=== PATIENT | female | born 1985 | race Hispanic/Latino ===

== ENCOUNTER 2022-12-12 12:42 | Inpatient (IN) | payer OTHER ==
[~2022-12-12] VITALS: Ht 172.7 cm; Wt 118.6 kg
[2022-12-12 13:42] LABS: BASOPHILS % (AUTO) 0.4 % (0.0-5.0); EOSINOPHILS % (AUTO) 0.6 % (0.0-8.0); HEMATOCRIT 41.3 % (36-48); LYMPHOCYTES % (AUTO) 13.2 % (21.0-51.0); MEAN CORPUSCULAR HGB CONC 32.9 g/dL (32.0-36.0); MEAN CORPUSCULAR VOLUME 88.1 fL (79-99); MONOCYTES % (AUTO) 9.7 % (3.0-13.0); NEUTROPHILS % (AUTO) 75.6 % (40.0-77.0); PLATELET COUNT (AUTO) 305 K/uL (130-400); RED BLOOD CELL COUNT(AUTO) 4.69 MIL/uL (4.00-5.50); RED CELL DISTRIBUTION WIDTH 13.2 % (11.0-15.5); WHITE BLOOD COUNT (AUTO) 18.1 K/uL (4.8-10.8)
[2022-12-12 13:55] LABS: CREATININE 0.5 mg/dL (0.5-1.5); POTASSIUM 3.7 mmol/L (3.5-5.1)
[2022-12-12 13:58] LABS: ALBUMIN 3.9 g/dL (3.5-5.0); TOTAL PROTEIN, SERUM 7.5 g/dL (6.0-8.3)
[2022-12-12] MEDS ORDERED: MORPHINE 4 MG SYG IVP ONE (14:00)
[2022-12-12] MEDS ORDERED: ONDANSETRON 4MG INJ IVP ONE (14:00)
[2022-12-12 14:14] LABS: APPEARANCE,URINE CLOUDY (CLEAR); BILIRUBIN,URINE NEGATIVE (NEGATIVE); COLOR,URINE YELLOW (YELLOW); GLUCOSE, URINE (UA) NEGATIVE (NEGATIVE); KETONES,URINE 100 mg/dL (NEGATIVE); LEUKOCYTE ESTERASE ,URINE 75 Leu/uL (NEGATIVE); NITRATE,URINE NEGATIVE (NEGATIVE); OCCULT BLOOD,URINE MODERATE (NEGATIVE); PH,URINE 5.5 (5.0-8.0); PROTEIN,URINE 10 mg/dL (NEGATIVE); UROBILINOGEN,URINE 0.2 mg/dL (0.2-1.0)
[2022-12-12 14:19] LABS: HCG,QUALITATIVE URINE NEGATIVE (NEGATIVE)
[2022-12-12 14:30] LABS: BACTERIA,URINE RARE /HPF (None Seen); MUCUS,URINE FEW LPF (None Seen); SQUAMOUS EPITHELIAL CELL,UR MOD /HPF (0-2)
[2022-12-12] MEDS ORDERED: LEVOFLOXACIN 500 MG/D5W 100 ML 100 ML IV SCH (15:30)
[2022-12-12] MEDS ORDERED: KETOROLAC 15MG/ML VIAL (15MG/ML) IV ONE (15:30)
[2022-12-12] MEDS ORDERED: IOHEXOL 350 MG/ML 100ML INFUS..BTL IV ONE (16:10)
[2022-12-12] MEDS ORDERED: 0.9%NACL 50ML IV SCH (19:00)
[2022-12-12] MEDS ORDERED: ZOSYN 3.375GM +NS 50ML IVPB SCH ×2 (19:00→19:30)
[2022-12-12] MEDS ORDERED: NITROGLYCERIN 0.4 MG SL TAB SL PRN (19:30)
[2022-12-12] MEDS ORDERED: ONDANSETRON 4MG INJ IV PRN (19:30)
[2022-12-12] MEDS ORDERED: ACETAMINOPHEN 325 MG TAB PO PRN ×2 (19:30)
[2022-12-12 19:48] LABS: INR 1.07 (0.85-1.15); PROTHROMBIN TIME 11.6 SEC (9.6-11.6)
[2022-12-12 19:49] LABS: PARTIAL THROMBOPLASTIN TIME 27.2 SEC (26.3-35.5)
[2022-12-12 19:52] LABS: MAGNESIUM 2.1 mg/dL (1.80-2.40)
[2022-12-12] MEDS: ZOSYN 3.375GM+NS 50ML 50 ML IVPB SCH (21:05)
[2022-12-12] MEDS: FAMOTIDINE 20MG VIAL IV SCH (21:05)
[2022-12-12] MEDS: MORPHINE 2 MG SYG IV PRN (21:06)
[2022-12-12] MEDS: 0.9%NACL 1000ML 1,000 ML IV SCH (21:06)
[2022-12-12 23:35] VITALS: BP 127/74
[2022-12-13] MEDS: ZOSYN 3.375GM+NS 50ML 50 ML IVPB SCH ×3 (03:14→19:37)
[2022-12-13 04:10] VITALS: BP 132/76
[2022-12-13 05:55] LABS: BASOPHILS % (AUTO) 0.3 % (0.0-5.0); EOSINOPHILS % (AUTO) 0.6 % (0.0-8.0); HEMATOCRIT 40.2 % (36-48); LYMPHOCYTES % (AUTO) 11.8 % (21.0-51.0); MEAN CORPUSCULAR HEMOGLOBIN 28.4 pg (27.0-33.0); MEAN CORPUSCULAR HGB CONC 32.3 g/dL (32.0-36.0); MEAN CORPUSCULAR VOLUME 87.8 fL (79-99); MONOCYTES % (AUTO) 11.3 % (3.0-13.0); NEUTROPHILS % (AUTO) 75.4 % (40.0-77.0); PLATELET COUNT (AUTO) 303 K/uL (130-400); RED BLOOD CELL COUNT(AUTO) 4.58 MIL/uL (4.00-5.50); RED CELL DISTRIBUTION WIDTH 13.2 % (11.0-15.5); WHITE BLOOD COUNT (AUTO) 15.9 K/uL (4.8-10.8)
[2022-12-13 06:17] LABS: ALBUMIN 3.3 g/dL (3.5-5.0); CREATININE 0.6 mg/dL (0.5-1.5); MAGNESIUM 2.2 mg/dL (1.80-2.40); POTASSIUM 3.7 mmol/L (3.5-5.1); TOTAL PROTEIN, SERUM 7.2 g/dL (6.0-8.3)
[2022-12-13 08:00] VITALS: BP 117/81
[2022-12-13] MEDS: FAMOTIDINE 20MG VIAL IV SCH ×2 (08:07→19:39)
[2022-12-13] MEDS: MORPHINE 2 MG SYG IV PRN (11:54)
[2022-12-13 12:00] VITALS: BP 141/79
[2022-12-13 16:00] VITALS: BP 129/75
[2022-12-13] MEDS: 0.9%NACL 1000ML 1,000 ML IV SCH (19:38)
[2022-12-13 20:00] VITALS: BP 122/75
[2022-12-14] VITALS: BP 131/82
[2022-12-14] MEDS: 0.9%NACL 1000ML 1,000 ML IV SCH ×3 (00:47→19:50)
[2022-12-14] MEDS: ZOSYN 3.375GM+NS 50ML 50 ML IVPB SCH ×3 (03:00→19:49)
[2022-12-14 04:00] VITALS: BP 121/66
[2022-12-14 05:53] LABS: HEMATOCRIT 38.4 % (36-48); MEAN CORPUSCULAR HEMOGLOBIN 28.6 pg (27.0-33.0); MEAN CORPUSCULAR HGB CONC 32.3 g/dL (32.0-36.0); MEAN CORPUSCULAR VOLUME 88.5 fL (79-99); RED BLOOD CELL COUNT(AUTO) 4.34 MIL/uL (4.00-5.50); RED CELL DISTRIBUTION WIDTH 13.2 % (11.0-15.5); WHITE BLOOD COUNT (AUTO) 10.4 K/uL (4.8-10.8)
[2022-12-14 06:12] LABS: ALBUMIN 3.1 g/dL (3.5-5.0); BILIRUBIN,DIRECT 0.3 mg/dL (0.0-0.3); CREATININE 0.7 mg/dL (0.5-1.5); MAGNESIUM 2.3 mg/dL (1.80-2.40); POTASSIUM 3.6 mmol/L (3.5-5.1); TOTAL PROTEIN, SERUM 7.1 g/dL (6.0-8.3)
[2022-12-14 08:00] VITALS: BP 119/71
[2022-12-14] MEDS: FAMOTIDINE 20MG VIAL IV SCH ×2 (08:11→19:49)
[2022-12-14 12:00] VITALS: BP 123/73
[2022-12-14] MEDS: MORPHINE 2 MG SYG IV PRN (14:33)
[2022-12-14] MEDS: LACTOBACILLUS RHAMNOSUS GG 1 EACH CAP.SPRINK PO SCH ×2 (16:42→19:49)
[2022-12-14 19:29] VITALS: BP 116/62
[2022-12-14 20:00] VITALS: BP 128/88
[2022-12-15] VITALS: BP 123/70
[2022-12-15 04:00] VITALS: BP 126/72
[2022-12-15] MEDS: ZOSYN 3.375GM+NS 50ML 50 ML IVPB SCH ×3 (04:18→19:29)
[2022-12-15 05:32] LABS: BASOPHILS % (AUTO) 0.7 % (0.0-5.0); EOSINOPHILS % (AUTO) 3.2 % (0.0-8.0); HEMATOCRIT 37.7 % (36-48); LYMPHOCYTES % (AUTO) 20.5 % (21.0-51.0); MEAN CORPUSCULAR HEMOGLOBIN 28.5 pg (27.0-33.0); MEAN CORPUSCULAR HGB CONC 32.6 g/dL (32.0-36.0); MEAN CORPUSCULAR VOLUME 87.3 fL (79-99); MONOCYTES % (AUTO) 11.6 % (3.0-13.0); NEUTROPHILS % (AUTO) 63.4 % (40.0-77.0); PLATELET COUNT (AUTO) 326 K/uL (130-400); RED BLOOD CELL COUNT(AUTO) 4.32 MIL/uL (4.00-5.50); WHITE BLOOD COUNT (AUTO) 8.2 K/uL (4.8-10.8)
[2022-12-15 05:49] LABS: ALBUMIN 3.1 g/dL (3.5-5.0); CREATININE 0.6 mg/dL (0.5-1.5); POTASSIUM 3.8 mmol/L (3.5-5.1); TOTAL PROTEIN, SERUM 6.9 g/dL (6.0-8.3)
[2022-12-15 08:00] VITALS: BP 129/85
[2022-12-15] MEDS: LACTOBACILLUS RHAMNOSUS GG 1 EACH CAP.SPRINK PO SCH ×3 (08:37→21:55)
[2022-12-15] MEDS: FAMOTIDINE 20MG VIAL IV SCH ×2 (08:37→21:55)
[2022-12-15] MEDS: 0.9%NACL 1000ML 1,000 ML IV SCH ×2 (10:53→17:30)
[2022-12-15 12:00] VITALS: BP 141/77
[2022-12-15 16:00] VITALS: BP 131/81
[2022-12-15 20:00] VITALS: BP 135/78
[2022-12-16] VITALS: BP 128/70
[2022-12-16] MEDS: ZOSYN 3.375GM+NS 50ML 50 ML IVPB SCH ×3 (03:15→20:01)
[2022-12-16] MEDS: 0.9%NACL 1000ML 1,000 ML IV SCH ×3 (03:57→23:38)
[2022-12-16 04:00] VITALS: BP 118/60
[2022-12-16 04:53] LABS: HEMATOCRIT 36.6 % (36-48); MEAN CORPUSCULAR HEMOGLOBIN 28.9 pg (27.0-33.0); MEAN CORPUSCULAR HGB CONC 33.1 g/dL (32.0-36.0); MEAN CORPUSCULAR VOLUME 87.6 fL (79-99); RED BLOOD CELL COUNT(AUTO) 4.18 MIL/uL (4.00-5.50); RED CELL DISTRIBUTION WIDTH 12.9 % (11.0-15.5); WHITE BLOOD COUNT (AUTO) 8.2 K/uL (4.8-10.8)
[2022-12-16 05:17] LABS: ALBUMIN 3.1 g/dL (3.5-5.0); CREATININE 0.6 mg/dL (0.5-1.5); MAGNESIUM 2.1 mg/dL (1.80-2.40); POTASSIUM 3.2 mmol/L (3.5-5.1); TOTAL PROTEIN, SERUM 6.8 g/dL (6.0-8.3)
[2022-12-16] MEDS ORDERED: POTASSIUM CHLORIDE 20MEQ/100ML 100 ML IV PRN (06:00)
[2022-12-16] MEDS ORDERED: POTASSIUM CHLORIDE 10% ELIXIR 20 MEQ/15 ML UDCUP PO PRN (06:00)
[2022-12-16] MEDS: KCL 20 MEQ ERTAB PO PRN ×3 (06:29→11:38)
[2022-12-16 08:00] VITALS: BP 128/73
[2022-12-16] MEDS: LACTOBACILLUS RHAMNOSUS GG 1 EACH CAP.SPRINK PO SCH ×2 (09:20→20:01)
[2022-12-16] MEDS: FAMOTIDINE 20MG VIAL IV SCH ×2 (09:22→20:01)
[2022-12-16 11:50] VITALS: BP 121/77
[2022-12-16 16:00] VITALS: BP 129/62
[2022-12-16 20:00] VITALS: BP 129/80
[2022-12-16] MEDS: SIMETHICONE 80 MG TAB.CHEW PO SCH (20:42)
[2022-12-17] VITALS: BP 101/55
[2022-12-17] MEDS: SIMETHICONE 80 MG TAB.CHEW PO SCH ×7 (00:30→23:33)
[2022-12-17] MEDS: ZOSYN 3.375GM+NS 50ML 50 ML IVPB SCH ×3 (03:42→18:58)
[2022-12-17 04:00] VITALS: BP 122/72
[2022-12-17 05:58] LABS: CREATININE 0.5 mg/dL (0.5-1.5); MAGNESIUM 1.8 mg/dL (1.80-2.40); POTASSIUM 3.4 mmol/L (3.5-5.1)
[2022-12-17] MEDS: KCL 20 MEQ ERTAB PO PRN ×2 (06:26→08:58)
[2022-12-17 08:00] VITALS: BP 143/73
[2022-12-17] MEDS: LACTOBACILLUS RHAMNOSUS GG 1 EACH CAP.SPRINK PO SCH ×2 (08:57→21:43)
[2022-12-17] MEDS: FAMOTIDINE 20MG VIAL IV SCH ×2 (08:58→21:42)
[2022-12-17 11:52] VITALS: BP 133/68
[2022-12-17 16:00] VITALS: BP 130/73
[2022-12-17] MEDS: 0.9%NACL 1000ML 1,000 ML IV SCH ×2 (16:33→19:30)
[2022-12-17 20:32] VITALS: BP_SYST 103; BP_SYST 145; BP_DIAS 50; BP_DIAS 92
[2022-12-18] VITALS (7 sets, daily range): BP systolic 113–149; BP diastolic 60–82
[2022-12-18] MEDS: ZOSYN 3.375GM+NS 50ML 50 ML IVPB SCH ×3 (03:18→19:26)
[2022-12-18] MEDS: SIMETHICONE 80 MG TAB.CHEW PO SCH ×5 (03:18→19:26)
[2022-12-18] MEDS: 0.9%NACL 1000ML 1,000 ML IV SCH (05:15)
[2022-12-18] MEDS: FAMOTIDINE 20MG VIAL IV SCH ×2 (09:01→20:00)
[2022-12-18] MEDS: LACTOBACILLUS RHAMNOSUS GG 1 EACH CAP.SPRINK PO SCH ×2 (09:01→20:00)
[2022-12-18] MEDS ORDERED: KETOROLAC 15MG/ML VIAL (15MG/ML) IV STA (11:46)
[2022-12-18] MEDS ORDERED: KETOROLAC 15MG/ML VIAL (15MG/ML) ONE (11:53)
[2022-12-18] MEDS ORDERED: KETOROLAC 15MG/ML VIAL (15MG/ML) IV PRN (12:00)
[2022-12-19] MEDS: SIMETHICONE 80 MG TAB.CHEW PO SCH ×6 (00:40→19:29)
[2022-12-19] MEDS: ZOSYN 3.375GM+NS 50ML 50 ML IVPB SCH ×3 (03:34→18:30)
[2022-12-19 04:07] VITALS: BP 118/66
[2022-12-19 08:00] VITALS: BP 126/89
[2022-12-19] MEDS: LACTOBACILLUS RHAMNOSUS GG 1 EACH CAP.SPRINK PO SCH ×2 (08:07→19:29)
[2022-12-19] MEDS: FAMOTIDINE 20MG VIAL IV SCH ×2 (08:07→19:32)
[2022-12-19 08:54] LABS: HEMATOCRIT 41.5 % (36-48); MEAN CORPUSCULAR HEMOGLOBIN 28.5 pg (27.0-33.0); MEAN CORPUSCULAR HGB CONC 32.8 g/dL (32.0-36.0); MEAN CORPUSCULAR VOLUME 86.8 fL (79-99); RED BLOOD CELL COUNT(AUTO) 4.78 MIL/uL (4.00-5.50); RED CELL DISTRIBUTION WIDTH 12.9 % (11.0-15.5); WHITE BLOOD COUNT (AUTO) 7.1 K/uL (4.8-10.8)
[2022-12-19 09:10] LABS: ALBUMIN 3.6 g/dL (3.5-5.0); CREATININE 0.7 mg/dL (0.5-1.5); POTASSIUM 3.7 mmol/L (3.5-5.1); TOTAL PROTEIN, SERUM 7.6 g/dL (6.0-8.3)
[2022-12-19 11:49] VITALS: BP 128/67
[2022-12-19] MEDS: KCL 20 MEQ ERTAB PO PRN ×2 (15:30→17:45)
[2022-12-19 16:00] VITALS: BP 143/94
[2022-12-19 19:23] VITALS: BP 122/78
[2022-12-19 23:31] VITALS: BP 113/66
[2022-12-20] MEDS: SIMETHICONE 80 MG TAB.CHEW PO SCH ×3 (00:40→08:26)
[2022-12-20] MEDS: ZOSYN 3.375GM+NS 50ML 50 ML IVPB SCH (02:44)
[2022-12-20 03:49] VITALS: BP 117/53
[2022-12-20] MEDS: FAMOTIDINE 20MG VIAL IV SCH (08:26)
[2022-12-20] MEDS: LACTOBACILLUS RHAMNOSUS GG 1 EACH CAP.SPRINK PO SCH (08:26)
[2022-12-20 08:52] VITALS: BP 112/67
== END 2022-12-20 12:11 | disposition home or self-care (01) | DRG 872 ==
LOC: EDH 12:42 → EDHIP 12:43 → 3BH 21:58
PROVIDERS: ADMIT Internal Medicine; ATTEND Internal Medicine
DX: A41.9 Sepsis, unspecified organism (principal); K57.20 Diverticulitis of large intestine with perforation and abscess without bleeding; K76.0 Fatty (change of) liver, not elsewhere classified; Z20.822 Contact with and (suspected) exposure to COVID-19; F17.210 Nicotine dependence, cigarettes, uncomplicated; Z80.8 Family history of malignant neoplasm of other organs or systems; Z82.49 Family history of ischemic heart disease and other diseases of the circulatory system; Z83.3 Family history of diabetes mellitus
CPT/HCPCS: 36415; 74177; 76770; 76856; 80048; 80053; 80076; 81001; 81025; 83605; 83735; 84132; 85014; 85018; 85025; 85027; 85610; 85730; 87040; 87088; 87635; 93005; G0378; J1885; J1956; J2270; J2405; J2543; J3490; J7030; Q9967

== ENCOUNTER 2023-01-03 14:10 | Emergency (ER) | payer OTHER ==
[~2023-01-03] VITALS: Ht 172.7 cm; Wt 117.0 kg
[2023-01-03 17:52] LABS: BASOPHILS % (AUTO) 0.7 % (0.0-5.0); EOSINOPHILS % (AUTO) 4.1 % (0.0-8.0); HEMATOCRIT 42.1 % (36-48); LYMPHOCYTES % (AUTO) 44.9 % (21.0-51.0); MEAN CORPUSCULAR HEMOGLOBIN 28.5 pg (27.0-33.0); MEAN CORPUSCULAR HGB CONC 32.8 g/dL (32.0-36.0); MEAN CORPUSCULAR VOLUME 86.8 fL (79-99); PLATELET COUNT (AUTO) 380 K/uL (130-400); RED BLOOD CELL COUNT(AUTO) 4.85 MIL/uL (4.00-5.50); RED CELL DISTRIBUTION WIDTH 13.3 % (11.0-15.5)
[2023-01-03 18:02] LABS: CREATININE 0.6 mg/dL (0.5-1.5); POTASSIUM 3.7 mmol/L (3.5-5.1)
[2023-01-03 18:07] LABS: TOTAL PROTEIN, SERUM 7.5 g/dL (6.0-8.3)
[2023-01-03 20:08] LABS: APPEARANCE,URINE CLOUDY (CLEAR); BILIRUBIN,URINE NEGATIVE (NEGATIVE); COLOR,URINE YELLOW (YELLOW); GLUCOSE, URINE (UA) NEGATIVE (NEGATIVE); KETONES,URINE NEGATIVE (NEGATIVE); LEUKOCYTE ESTERASE ,URINE NEGATIVE Leu/uL (NEGATIVE); NITRATE,URINE NEGATIVE (NEGATIVE); OCCULT BLOOD,URINE LARGE (NEGATIVE); PH,URINE 5.5 (5.0-8.0); PROTEIN,URINE 20 mg/dL (NEGATIVE); UROBILINOGEN,URINE 0.2 mg/dL (0.2-1.0)
[2023-01-03 20:14] LABS: BACTERIA,URINE MOD /HPF (None Seen); CALCIUM OXALATE CRYSTALS,UR MANY /LPF (None Seen); HCG,QUALITATIVE URINE NEGATIVE (NEGATIVE); MUCUS,URINE MOD LPF (None Seen); RBC,URINE TNTC /HPF (0-1); SQUAMOUS EPITHELIAL CELL,UR MOD /HPF (0-2)
[2023-01-03] MEDS ORDERED: SULF1TAB42 PO (20:20)
[2023-01-03] MEDS ORDERED: CEFTRIAXONE 1G VIAL ONE (20:24)
[2023-01-03] MEDS ORDERED: CEFTRIAXONE 1G VIAL IM ONE (20:30)
[2023-01-03 20:31] VITALS: BP 115/78
== END 2023-01-03 20:35 | disposition home or self-care (01) ==
LOC: EDH 14:10
DX: N39.0 Urinary tract infection, site not specified (principal)
CPT/HCPCS: 99283; 80053; 85025; 87088; 81001; 81025; 36415; 96372; J0696

== ENCOUNTER 2023-03-13 10:18 | Day surgery (SDC) | payer OTHER ==
[2023-03-13] VITALS (10 sets, daily range): BP systolic 121–138; BP diastolic 63–88; PULSE 63–75; RESP 16–18
[~2023-03-13 10:18] MED LIST: AMOX1TAB16 PO; DOCU100C33 PO
[2023-03-13] MEDS ORDERED: 0.9%NACL 1000ML 1,000 ML IV ONE (10:41)
[2023-03-13] MEDS ORDERED: ACET-2247 PO (11:27)
[2023-03-13] MEDS ORDERED: FISH1CAP50 PO (11:33)
[2023-03-13] MEDS ORDERED: MULT-1367 PO (11:33)
[2023-03-13] MEDS ORDERED: ASCO1TAB PO (11:33)
[2023-03-13] MEDS ORDERED: MULT-1296 PO (11:33)
[2023-03-13] MEDS ORDERED: VITA-395 PO (11:33)
[2023-03-13] MEDS ORDERED: LIDOCAINE PF 100MG/5ML (2%) SYRINGE 5ML ONE (12:30)
[2023-03-13] MEDS ORDERED: PROPOFOL 10 MG/ML 20ML VIAL IV ONE ×2 (12:30→13:12)
== END 2023-03-13 14:05 | disposition home or self-care (01) ==
LOC: ENDO 10:18 → DAH 10:18 → ENDO 14:05
PROVIDERS: ATTEND Internal Medicine Gastroenterology
DX: R10.32 Left lower quadrant pain (principal); Z20.822 Contact with and (suspected) exposure to COVID-19; D12.0 Benign neoplasm of cecum; K64.0 First degree hemorrhoids; K57.30 Diverticulosis of large intestine without perforation or abscess without bleeding; K59.00 Constipation, unspecified; K21.00 Gastro-esophageal reflux disease with esophagitis, without bleeding; R14.0 Abdominal distension (gaseous); R94.6 Abnormal results of thyroid function studies; J45.909 Unspecified asthma, uncomplicated; K76.0 Fatty (change of) liver, not elsewhere classified; Z86.16 Personal history of COVID-19; K29.00 Acute gastritis without bleeding; Z82.49 Family history of ischemic heart disease and other diseases of the circulatory system; Z87.19 Personal history of other diseases of the digestive system; Z83.3 Family history of diabetes mellitus; Z83.438 Family history of other disorder of lipoprotein metabolism and other lipidemia; Z80.3 Family history of malignant neoplasm of breast; Z85.828 Personal history of other malignant neoplasm of skin; Z80.0 Family history of malignant neoplasm of digestive organs; Z80.1 Family history of malignant neoplasm of trachea, bronchus and lung; Z87.891 Personal history of nicotine dependence; Z72.89 Other problems related to lifestyle
CPT/HCPCS: 84703; 36415; 45385; 88305; J7030; J2001; J2704 ×2; A4620; A4215; A4223; A4222; A4606; J3490